=== PATIENT | female | born 1950 | race Caucasian/White ===

== ENCOUNTER 2017-01-06 22:05 | Emergency (ER) | payer MEDICAID ==
[~2017-01-06] VITALS: Ht 157.5 cm; Wt 47.6 kg
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
--- NOTE | 2017-01-06 22:42 | NUR ---
DR CARABALLO AT BEDSIDE FOR EVAL.
--- NOTE | 2017-01-06 22:52 | NUR ---
PT TO RADIOLOGY FOR FACIAL CT SCAN VIA [facility].
--- NOTE | 2017-01-06 23:18 | NUR ---
PD AT BEDSIDE TALKING TO PT AND FAMILY.
--- NOTE | 2017-01-06 23:26 | NUR ---
REPORT GIVEN TO CHARGE MISAEL FOR [facility].
--- NOTE | 2017-01-07 00:36 | NUR ---
PT OK TO BE DISCHARGED PER DR CARABALLO. Patient discharged to home in stable condition. Verbal after care instructions given. Patient verbalizes understanding of instruction. Patient is awake and alert to self, day, and place. Pt ambulatory with a steady gait.
[2017-01-07 00:38] VITALS: BP 128/70
== END 2017-01-07 00:38 | disposition home or self-care (01) ==
LOC: ER 22:09
DX: S00.83XA Contusion of other part of head, initial encounter (principal); J32.9 Chronic sinusitis, unspecified; K04.7 Periapical abscess without sinus; E78.5 Hyperlipidemia, unspecified; M81.0 Age-related osteoporosis without current pathological fracture; Y04.0XXA Assault by unarmed brawl or fight, initial encounter; Y92.89 Other specified places as the place of occurrence of the external cause; Y93.89 Activity, other specified; Y99.8 Other external cause status
CPT/HCPCS: 70486; 99284; A4606; Z7610